=== PATIENT | female | born 1985 | race Caucasian/White ===

== ENCOUNTER → 2016-03-20 | Outpatient (CLI) | payer BC ==
[~2016-03-20] MED LIST: ACHYD1T PO; CITA10TA; DCS100C PO; HYDR-3714 PO; IBP800T PO; MTF500T PO; OXYC1TAB12 PO; PNV1TABL9 PO
--- NOTE | 2016-03-20 17:04 | Diagnostic Imaging Report ---
INDICATION: Back pain, left rib pain. FINDINGS: Three views of the left ribs demonstrate the left lung to be clear. There is normal ossification. No fractures are seen. IMPRESSION: Normal left ribs. Dictated by: Dictated on workstation # [id number]
== END ==
LOC: RAD 16:36
PROVIDERS: ATTEND Nurse Practitioner Family
DX: R07.81 Pleurodynia (principal)
CPT/HCPCS: 71100

== ENCOUNTER 2017-04-27 08:55 | Outpatient (CLI) | payer BC, MEDICAID ==
[~2017-04-27] VITALS: Ht 154.9 cm; Wt 101.2 kg
[2017-04-27 09:20] VITALS: BP 137/82
[2017-04-27] MEDS ORDERED: METF500T4 PO (09:49)
--- NOTE | 2017-04-29 11:50 | Physician Query-Final Dx ---
LOGAN BOWIE 04/29/17 1150: Clinic Account Progress/Dx Physician Query: Please give diagnosis Date of Service Apr 27, 2017 at 08:55 RACHEL OLIVAS MD 04/29/17 1354: Clinic Account Progress/Dx DIAGNOSIS: Diagnosis false labor AZEBLOGAN Apr 29, 2017 11:50 RACHEL OLIVAS MD Apr 29, 2017 13:54
== END 2017-04-27 10:08 | disposition home or self-care (01) ==
LOC: WSo 08:55 → LDRP 08:56 → WSo 10:08
PROVIDERS: ATTEND Obstetrics & Gynecology
DX: O47.03 False labor before 37 completed weeks of gestation, third trimester (principal); Z3A.36 36 weeks gestation of pregnancy
CPT/HCPCS: 99213

== ENCOUNTER 2017-05-14 10:24 | Inpatient (IN) | payer BC, MEDICAID ==
[~2017-05-14] VITALS: Ht 154.9 cm; Wt 101.8 kg
[2017-05-14] VITALS (18 sets, daily range): BP systolic 123–173; BP diastolic 70–88
[~2017-05-14 10:24] MED LIST changes: +METF500T4 PO
[2017-05-14] MEDS ORDERED: D5 LR IV SOLUTION 1,000 ML IV ONE ×2 (10:31→17:32)
[2017-05-14] MEDS ORDERED: D5 LR IV SOLUTION 1,000 ML IV SCH (11:00)
[2017-05-14 11:04] LABS: BASOPHILS % (AUTO) 0 % (0-10); EOSINOPHILS # (AUTO) 0.1 10^3/uL (0.0-0.3); EOSINOPHILS % (AUTO) 1 % (0-10); HEMATOCRIT 40 % (35-52); HEMOGLOBIN 14.4 G/DL (11.5-16.0); LYMPHOCYTES # (AUTO) 2.1 X 10^3 (1.0-4.0); LYMPHOCYTES % (AUTO) 17 % (12-44); MEAN CORPUSCULAR HEMOGLOBIN 31 PG (25-34); MEAN CORPUSCULAR HGB CONC 36 G/DL (32-36); MEAN CORPUSCULAR VOLUME 85 FL (80-99); MONOCYTES # (AUTO) 0.9 X 10^3 (0.0-1.0); MONOCYTES % (AUTO) 7 % (0-12); NEUTROPHILS # (AUTO) 8.8 X 10^3 (1.8-7.8); NEUTROPHILS % (AUTO) 74 % (42-75); PLATELET COUNT 276 10^3/uL (130-400); RED BLOOD COUNT 4.72 10^6/uL (4.35-5.85); RED CELL DISTRIBUTION WIDTH 14.9 % (10.0-14.5); WHITE BLOOD COUNT 11.9 10^3/uL (4.3-11.0)
[2017-05-14 11:24] LABS: ALANINE AMINOTRANSFERASE 16 U/L (0-55); ALBUMIN 3.3 GM/DL (3.2-4.5); ALKALINE PHOSPHATASE 211 U/L (40-136); BILIRUBIN,TOTAL 0.4 MG/DL (0.1-1.0); BUN/CREATININE RATIO 12; CALCIUM 9.4 MG/DL (8.5-10.1); CARBON DIOXIDE 18 MMOL/L (21-32); CHLORIDE 107 MMOL/L (98-107); CREATININE SERUM 0.68 MG/DL (0.60-1.30); GFR ESTIMATED > 60; GLUCOSE 69 MG/DL (70-105); POTASSIUM 3.8 MMOL/L (3.6-5.0); SODIUM 137 MMOL/L (135-145); TOTAL PROTEIN 6.7 GM/DL (6.4-8.2)
[2017-05-14 12:02] LABS: BAND NEUTROPHILS 0 %; LYMPHOCYTES % (MANUAL) 20 %; MONOCYTES % (MANUAL) 6 %; NEUTROPHILS % (MANUAL) 74 %
[2017-05-14 12:03] LABS: BASOPHILS % (MANUAL) 0 %; EOSINOPHILS % (MANUAL) 0 %; RBC MORPH NORMAL
[2017-05-14 12:31] LABS: URINE CREATININE FOR RATIO 13 MG/DL (30-125); URINE PROTEIN FOR RATIO ONLY < 6 MG/DL (6-12)
[2017-05-14] MEDS ORDERED: MAGNESIUM SULFATE DRIP 500 ML IV ONE (13:07)
[2017-05-14] MEDS ORDERED: NS IV 1000 ML 1,000 ML ONE (13:07)
[2017-05-14] MEDS ORDERED: metroNIDAZOLE 500MG/100ML IVPB 100 ML IV ONE (13:15)
[2017-05-14] MEDS ORDERED: NS IV 1000 ML 1,000 ML IV SCH (13:15)
[2017-05-14] MEDS ORDERED: ceFAZolin 2 GM IV Premixed 50 ML IV ONE (13:15)
[2017-05-14] MEDS: MAGNESIUM SULFATE DRIP 500 ML IV SCH (13:20)
[2017-05-14] MEDS ORDERED: LACTATED RINGERS 1,000 ML IV PRN ×2 (13:27)
[2017-05-14] MEDS ORDERED: CITRIC ACID/SOB CIT (BICITRA) 30 ML UDC PO ONE (13:30)
[2017-05-14] MEDS ORDERED: METOCLOPRAMIDE INJ 10 MG/2 ML (REGLAN) IV ONE (13:30)
[2017-05-14] MEDS ORDERED: CATHETER FLUSH 10 ML SYR IV PRN (13:30)
[2017-05-14] MEDS ORDERED: FAMOTIDINE 20MG/2ML IV (PEPCID) IV ONE (13:30)
--- OUTSIDE RECORDS SUMMARY | 2017-05-14 13:59 | XMS REPORT | Continuity of Care Document ---
Author Author [facility] Organization [facility] Address Unknown Phone Unavailable Allergies Active Description Code Type Severity Reaction Onset Reported/Identified Relationship to Patient Clinical Status Yes No Allergy Information Available [id number] Drug Allergy Unknown N/A 2011 Yes No Known Drug Allergies [id number] Drug Allergy Unknown N/A 06/08/2014 Medications There is no data. Problems Date Dx Coded Attending Type Code Diagnosis Diagnosed By 10/19/2011 Ot 220 10/19/2011 Ot 620.0 02/02/2012 Ot 623.8 02/02/2012 Ot 625.9 11/23/2012 RACHEL OLIVAS MD Ot 648.81 11/23/2012 RACHEL OLIVAS MD Ot 652.51 11/23/2012 RACHEL OLIVAS MD Ot 657.01 11/23/2012 RACHEL OLIVAS MD Ot 661.21 11/23/2012 RACHEL OLIVAS MD Ot V04.81 11/23/2012 RACHEL OLIVAS MD Ot V06.1 11/23/2012 RACHEL OLIVAS MD Ot V27.0 12/18/2013 DIA GASTON Ot 648.93 12/18/2013 DIA GASTON Ot 789.09 12/29/2013 Ot 256.4 12/29/2013 Ot 625.8 12/29/2013 Ot 628.9 12/29/2013 Ot 620.2 12/29/2013 Ot V22.1 06/17/2014 Ot 256.4 06/17/2014 Ot 625.8 06/17/2014 Ot 628.9 06/17/2014 Ot 620.2 06/17/2014 Ot V22.1 06/17/2014 RACHEL OLIVAS MD Ot 285.9 06/17/2014 RACHEL OLIVAS MD Ot 648.23 06/17/2014 BRENDON WARD, RACHEL Coleman Ot 654.23 06/17/2014 BRENDON WARD, RACHEL Coleman Ot V72.63 06/17/2014 BRENDON WARD, RACHEL Coleman Ot V74.8 06/18/2014 BRENDON WARD, RACHEL Coleman Ot 576.8 06/18/2014 BRENDON WARD, RACHEL Coleman Ot 648.81 06/18/2014 BRENDON WARD, RACHEL Coleman Ot 654.21 06/18/2014 BRENDON WARD, RACHEL Coleman Ot 657.01 06/18/2014 BRENDON MD, RACHEL Coleman Ot V27.0 07/10/2014 BRENDON WARD, RACHEL Coleman Ot 285.9 07/10/2014 BRENDON WARD, RACHEL Coleman Ot 648.23 07/10/2014 BRENDON WARD, RACHEL Coleman Ot 654.23 07/10/2014 BRENDON WARD, RACHEL Coleman Ot V72.63 07/10/2014 BRENDON WARD, RACHEL Coleman Ot V74.8 11/25/2014 Ot 256.4 11/25/2014 Ot 625.8 11/25/2014 Ot 628.9 11/25/2014 Ot 620.2 11/25/2014 Ot V22.1 11/25/2014 BRENDON WARD, RACHEL Coleman Ot 285.9 11/25/2014 BRENDON WARD, RACHEL Coleman Ot 648.23 11/25/2014 BRENDON WARD, RACHEL Coleman Ot 654.23 11/25/2014 BRENDON WARD, RACHEL Coleman Ot V72.63 11/25/2014 BRENDON WARD, RACHEL Coleman Ot V74.8 03/21/2015 Ot 256.4 03/21/2015 Ot 625.8 03/21/2015 Ot 628.9 03/21/2015 Ot 620.2 03/21/2015 Ot V22.1 03/21/2015 BRENDON WARD, RACHEL G Ot 285.9 03/21/2015 BRENDON WARD, RACHEL Jared Ot 648.23 03/21/2015 BRENDON WARD, RACHEL Coleman Ot 654.23 03/21/2015 BRENDON WARD, RACHEL Coleman Ot V72.63 03/21/2015 BRENDON WARD, RACHEL Coleman Ot V74.8 03/21/2015 JULITO WARD, GERDA Hair Ot R10.2 03/25/2015 Ot 256.4 03/25/2015 Ot 625.8 03/25/2015 Ot 628.9 03/25/2015 Ot 620.2 03/25/2015 Ot V22.1 03/25/2015 BRENDON WARD, RACHEL Coleman Ot 285.9 03/25/2015 BRENDON WARD, RACHEL Coleman Ot 648.23 03/25/2015 BRENDON WARD, RACHEL Coleman Ot 654.23 03/25/2015 BRENDON WARD, RACHEL Coleman Ot V72.63 03/25/2015 BRENDON WARD, RACHEL Coleman Ot V74.8 03/25/2015 JULITO WARD, GERDA Hair Ot R10.2 03/25/2015 BRENDON WARD, RACHEL Coleman Ot R10.83 05/02/2015 ROSALVA WARD, JONE Lewis Ot N39.0 05/06/2015 ROSALVA WARD, JONE Lewis Ot N39.0 06/07/2015 JULITO WARD, GERDA Hair Ot R10.2 PELVIC AND PERINEAL PAIN 06/08/2015 RACHEL OLIVAS MD Ot R10.84 GENERALIZED ABDOMINAL PAIN 06/08/2015 ROSALVA WARD, JONE Lewis Ot N39.0 URINARY TRACT INFECTION, SITE NOT SPECIF 04/05/2016 KAR BOONE Ot R07.81 PLEURODYNIA 04/27/2017 RACHEL OLIVAS MD Ot O47.03 FALSE LABOR BEFORE 37 COMPLETED WEEKS OF 04/27/2017 RACHEL OLIVAS MD, Ot Z3A.36 36 WEEKS GESTATION OF 04/30/2017 RACHEL OLIVAS MD, Ot O47.03 FALSE LABOR BEFORE 37 COMPLETED WEEKS OF 04/30/2017 RACHEL OLIVAS MD, Ot Z3A.36 36 WEEKS GESTATION OF Procedures There is no data. Results Test Result Range Thyroid Stimulating Hormone - 06/13/16 17:20 TSH 0.66 mIU/mL 0.32-5.00 Urine Culture - 09/28/16 17:00 PRELIM CULTURE RESULTS 50,000-100,000 Mixed Lyric FINAL CULTURE RESULTS 50,000-100,000 Gram Positive and Gram Negative Mixed Lyric [id number] Skin Contaminant [id number] Further Workup done MEDIA PLATED Setup at 18:16 on 09/28/2016 CULTURE SOURCE VOID Encounters ACCT No. Visit Date/Time Discharge Status Pt. Type Provider Facility Loc./Unit Complaint [id number] 04/27/2017 08:55:00 04/27/2017 10:08:00 DIS Outpatient RACHEL OLIVAS MD [facility] WSo BLEEDING [id number] 03/20/2016 16:36:00 03/20/2016 23:59:59 CLS Outpatient KAR BOONE [facility] RAD LT RIB PAIN [id number] 04/29/2015 12:17:00 04/29/2015 23:59:59 CLS Outpatient JONE BLACKWELL MD [facility] RAD [id number] 03/23/2015 09:50:00 03/23/2015 23:59:59 CLS Outpatient RACHEL OLIVAS MD [facility] RAD [id number] 11/25/2014 15:04:00 11/25/2014 23:59:59 CLS Outpatient GERDA VILA MD [facility] RAD [id number] 06/16/2014 06:41:00 06/18/2014 16:30:00 DIS Inpatient RACHEL OLIVAS MD [facility] WS [id number] 06/08/2014 11:46:00 06/08/2014 23:59:59 CLS Outpatient RACHEL OLIVAS MD [facility] PREOP [id number] 12/18/2013 12:17:00 12/18/2013 14:15:00 DIS Emergency DIA GASTON [facility] ER [id number] 11/21/2012 08:15:00 11/23/2012 19:05:00 DIS Inpatient RACHEL OLIVAS MD [facility] [id number] 05/23/2017 12:00:00 PEN Preadmit RACHEL OLIVAS MD [facility] [id number] 04/09/2012 17:34:00 Document Registration [id number] 02/01/2012 23:47:00 Document Registration [id number] 01/11/2012 10:44:00 Document Registration [id number] 10/19/2011 10:42:00 Document Registration [id number] 10/18/2011 12:19:00 Document Registration [id number] 09/28/2016 17:52:00 09/28/2016 23:59:00 DIS Outpatient RACHEL OLIVAS [id number] 06/13/2016 17:20:00 06/13/2016 23:59:00 DIS Outpatient GERDA VILA
[2017-05-14] MEDS ORDERED: METOCLOPRAMIDE INJ 10 MG/2 ML (REGLAN) ONE (15:36)
[2017-05-14] MEDS ORDERED: CITRIC ACID/SOB CIT (BICITRA) 30 ML UDC ONE (15:37)
[2017-05-14] MEDS ORDERED: FAMOTIDINE 20MG/2ML IV (PEPCID) ONE (15:37)
[2017-05-14] MEDS ORDERED: ceFAZolin 2 GM IV Premixed 50 ML ONE (15:37)
[2017-05-14] MEDS ORDERED: fentaNYL INJECTION 100 MCG/2 ML AMP ONE (15:42)
[2017-05-14] MEDS ORDERED: OXYTOCIN/NORMAL SALINE 500 ML IV ONE ×4 (15:49→16:58)
[2017-05-14] MEDS ORDERED: ONDANSETRON 4 MG/2 ML (SDV) Z0FRAN ONE (16:57)
[2017-05-14] MEDS ORDERED: KETOROLAC 30 MG/ML VIAL ONE (16:57)
[2017-05-14] MEDS ORDERED: DEXAMETHASONE 10 MG/ML (DECADRON) 1 ML VIAL ONE (16:57)
[2017-05-14] MEDS ORDERED: PHENYLEPHRINE 100 MCG/ML 10 ML (ANESTHESIA) SYR ONE (16:58)
[2017-05-14] MEDS: KETOROLAC 30 MG/ML VIAL IVP SCH (17:20)
[2017-05-14] MEDS: OXYTOCIN/NORMAL SALINE 500 ML IV SCH ×2 (17:27→23:00)
[2017-05-14] MEDS ORDERED: MAGNESIUM SULFATE DRIP 500 ML IV SCH (17:30)
[2017-05-14] MEDS ORDERED: ONDANSETRON 4 MG/2 ML (SDV) Z0FRAN IVP PRN (17:30)
[2017-05-14] MEDS ORDERED: TETANUS,DIPTH,PERTUSS P/F (BOOSTRIX) 0.5 ML VIAL IM ONE (17:30)
[2017-05-14] MEDS ORDERED: PROMETHAZINE INJ 25 MG/ML (PHENERGAN) AMP IM PRN (17:30)
[2017-05-14] MEDS ORDERED: MEASLES,MUMPS,RUBELLA 1 EA INJ SC ONE (17:30)
[2017-05-14] MEDS ORDERED: MEPERIDINE (DEMEROL) INJ 100 MG/ML IM PRN (17:30)
--- NOTE | 2017-05-14 17:31 | History & Physical ---
History and Physical Date Seen by Provider: May 14, 2017 Time Seen by Provider: 12:10 This patient is a 31-year-old white female who was admitted with complaint of vaginal bleeding. She was basil every 7 minutes on admission was having bloody show but was not dilated. Blood pressure was found to be in the 170 systolic. Her LDH was elevated. She was admitted with a diagnosis of PIH/help syndrome. This patient's history includes previous deliveries decision made to go ahead with repeat . Patient is GBS culture was negative Allergies are none Education her vitamins Past medical history past surgical history obstetric history family history is social histories are per the antepartum record HEENT exam is normal Neck is supple no lymphadenopathy no thyromegaly Abdomen is gravid soft nontender nondistended Extreme show clubbing cyanosis. There is no Homans sign. Pelvic exam is deferred other than the nurse's exam on admission where she noted a large amount of blood monitor showed contractions every 5-7 minutes with a normal heart rate pattern Laboratory Tests Test 05/14/17 10:15 Range/Units White Blood Count 11.9 H 4.3-11.0 10^3/uL Red Blood Count 4.72 4.35-5.85 10^6/uL Hemoglobin 14.4 11.5-16.0 G/DL Hematocrit 40 35-52 % Mean Corpuscular Volume 85 80-99 FL Mean Corpuscular Hemoglobin 31 25-34 PG Mean Corpuscular Hemoglobin Concent 36 32-36 G/DL Red Cell Distribution Width 14.9 H 10.0-14.5 % Platelet Count 276 130-400 10^3/uL Mean Platelet Volume 11.0 H 7.4-10.4 FL Neutrophils (%) (Auto) 74 42-75 % Lymphocytes (%) (Auto) 17 12-44 % Monocytes (%) (Auto) 7 0-12 % Eosinophils (%) (Auto) 1 0-10 % Basophils (%) (Auto) 0 0-10 % Neutrophils # (Auto) 8.8 H 1.8-7.8 X 10^3 Lymphocytes # (Auto) 2.1 1.0-4.0 X 10^3 Monocytes # (Auto) 0.9 0.0-1.0 X 10^3 Eosinophils # (Auto) 0.1 0.0-0.3 10^3/uL Basophils # (Auto) 0.0 0.0-0.1 10^3/uL Neutrophils % (Manual) 74 % Lymphocytes % (Manual) 20 % Monocytes % (Manual) 6 % Eosinophils % (Manual) 0 % Basophils % (Manual) 0 % Band Neutrophils 0 % Blood Morphology Comment NORMAL Urine Protein < 6 L 6-12 MG/DL Urine Creatinine 13 L 30-125 MG/DL Urine Protein/Creatinine Ratio Sodium Level 137 135-145 MMOL/L Potassium Level 3.8 3.6-5.0 MMOL/L Chloride Level 107 98-107 MMOL/L Carbon Dioxide Level 18 L 21-32 MMOL/L Anion Gap 12 5-14 MMOL/L Blood Urea Nitrogen 8 7-18 MG/DL Creatinine 0.68 0.60-1.30 MG/DL Estimat Glomerular Filtration Rate > 60 BUN/Creatinine Ratio 12 Glucose Level 69 L 70-105 MG/DL Calcium Level 9.4 8.5-10.1 MG/DL Total Bilirubin 0.4 0.1-1.0 MG/DL Aspartate Amino Transf (AST/SGOT) 17 5-34 U/L Alanine Aminotransferase (ALT/SGPT) 16 0-55 U/L Alkaline Phosphatase 211 H 40-136 U/L Lactate Dehydrogenase 249 H 125-220 U/L Total Protein 6.7 6.4-8.2 GM/DL Albumin 3.3 3.2-4.5 GM/DL LDH is elevated Assessment and plan late at 36-5/7 weeks' gestation admitted with labor and PIH and developing help syndrome patient has had previous deliveries and plan is for repeat was will the undertaken today 36-5/7 weeks' gestation with vaginal bleeding/ labor/severe PIH Allergies and Home Medications Allergies Coded Allergies: No Known Drug Allergies (Unverified , 06/08/14) Home Medications Metformin HCl 500 Mg Tablet, 500 MG PO BID, (Reported) Pnv Cmb#21/Iron/Folic Acid 1 Each Tablet, 1 EACH PO DAILY, (Reported) Patient Home Medication List Home Medication List Reviewed: Yes Clinical Quality Measures DVT/VTE Risk/Contraindication: Risk Factor Score Per Nursin RFS Level Per Nursing on Admit: 3=High RACHEL OLIVAS MD May 14, 2017 5:31 pm
[2017-05-14] MEDS ORDERED: diphenhydrAMINE 50 MG/ML INJ (BENADRYL) IV PRN (17:45)
[2017-05-14] MEDS ORDERED: METOCLOPRAMIDE INJ 10 MG/2 ML (REGLAN) IV PRN (17:45)
[2017-05-14] MEDS ORDERED: NALOXONE 0.4 MG/ML 1 ML (NARCAN) VIAL IV PRN ×2 (17:45)
[2017-05-14] MEDS ORDERED: ONDANSETRON 4 MG/2 ML (SDV) Z0FRAN IV PRN (17:45)
[2017-05-14] MEDS: DOCUSATE SODIUM 100 MG (COLACE) CAP PO SCH (20:10)
[2017-05-14] MEDS: oxyCODONE/APAP 10/325MG (PERCOCET 10) TABLET PO PRN ×2 (20:27→21:34)
[2017-05-15] VITALS (14 sets, daily range): BP systolic 12–141; BP diastolic 57–90
[2017-05-15] MEDS: KETOROLAC 30 MG/ML VIAL IVP SCH ×3 (00:10→19:56)
[2017-05-15] MEDS: MAGNESIUM SULFATE DRIP 500 ML IV SCH (00:10)
--- NOTE | 2017-05-15 00:45 | OPERATIVE REPORT ---
DATE OF SERVICE: 05/14/2017 PREOPERATIVE DIAGNOSES: A 36 and 5/7 weeks' gestation with labor and severe -induced hypertension/developing HELLP syndrome. POSTOPERATIVE DIAGNOSES: A 36 and 5/7 weeks' gestation with labor and severe -induced hypertension/developing HELLP syndrome with placental abruption. OPERATIVE DESCRIPTION: With the patient in the supine position under satisfactory spinal anesthesia, she was prepped and draped in the usual fashion for abdominal surgery. A Webster catheter had been placed in the urinary bladder when the patient was started on magnesium that was left to dependent drainage. A Pfannenstiel incision was made through the skin with a scalpel at the site of the patient's previous Pfannenstiel incision. The abdomen was entered in the usual manner. Bladder retractor placed into position and clean scalpel used to make a 4 cm hysterotomy incision transversely across the lower uterine segment at the site of the patient's lower uterine window with placenta visible through that membrane. The dissection was through the placenta. Baby was in double footling breech position. Breech extraction was performed promptly without difficulty and atraumatically. The was bulb suctioned on completion of delivery. Umbilical cord doubly clamped and the umbilical cord was cut and the infant passed to the nurse Mcfarlane, the pediatric nurse in attendance for delivery. Cord bloods were obtained. The was a female with Apgars of 8 and 9 at 1 and 5 minutes respectively, weight of 6 pounds 7 ounces. time of 16:59 and a cord blood pH was 7.30. It is noted that the placenta delivered fairly promptly after the baby and there was a large clot in the placental bed consistent with approximately 10% area of the placenta that had abrupted. The uterus was wiped clean, was exteriorized anterior wiped clean with a wet laparotomy sponge. Uterine incision closed with a running lock suture of 2-0 Vicryl. Hemostasis was complete. The uterus was returned to the abdominal cavity. All blood clot and debris removed from the abdominal cavity. With sponge, needle counts correct and hemostasis assured, the anterior parietal peritoneum was closed with running suture of 2-0 Vicryl. Rectus muscles were closed with that suture, rectus fascia was closed with 2-0 Vicryl, subcutaneous tissue with 2-0 Vicryl and the skin was stapled. Sponge and needle counts were correct on completion of delivery and the repair. ESTIMATED BLOOD LOSS: Around 400 mL. The patient tolerated the delivery well and was recovered in the LDR. The baby had been taken stable to the full term nursery under the care of nurse Mcfarlane. Job ID: [id number] DocumentID: [id number] Dictated Date: 05/14/2017 17:36:36 Business Liaison Manager Date: 05/15/2017 00:44:03 Dictated By: RACHEL OLIVAS MD
[2017-05-15 06:53] LABS: BASOPHILS % (AUTO) 0 % (0-10); EOSINOPHILS % (AUTO) 0 % (0-10); HEMATOCRIT 31 % (35-52); HEMOGLOBIN 10.6 G/DL (11.5-16.0); LYMPHOCYTES % (AUTO) 15 % (12-44); MEAN CORPUSCULAR HEMOGLOBIN 30 PG (25-34); MEAN CORPUSCULAR HGB CONC 35 G/DL (32-36); MEAN CORPUSCULAR VOLUME 86 FL (80-99); MEAN PLATELET VOLUME 10.1 FL (7.4-10.4); MONOCYTES % (AUTO) 7 % (0-12); NEUTROPHILS # (AUTO) 10.4 X 10^3 (1.8-7.8); NEUTROPHILS % (AUTO) 77 % (42-75); PLATELET COUNT 236 10^3/uL (130-400); RED BLOOD COUNT 3.54 10^6/uL (4.35-5.85); RED CELL DISTRIBUTION WIDTH 14.7 % (10.0-14.5); WHITE BLOOD COUNT 13.4 10^3/uL (4.3-11.0)
[2017-05-15 07:17] LABS: ALANINE AMINOTRANSFERASE 12 U/L (0-55); ALBUMIN 2.6 GM/DL (3.2-4.5); ALKALINE PHOSPHATASE 143 U/L (40-136); BILIRUBIN,TOTAL 0.2 MG/DL (0.1-1.0); BUN/CREATININE RATIO 13; CALCIUM 6.7 MG/DL (8.5-10.1); CARBON DIOXIDE 22 MMOL/L (21-32); CHLORIDE 111 MMOL/L (98-107); CREATININE SERUM 0.61 MG/DL (0.60-1.30); GFR ESTIMATED > 60; GLUCOSE 136 MG/DL (70-105); POTASSIUM 4.1 MMOL/L (3.6-5.0); SODIUM 136 MMOL/L (135-145); TOTAL PROTEIN 4.8 GM/DL (6.4-8.2)
--- NOTE | 2017-05-15 08:37 | Progress Note-Standard ---
Standard Progress Note Progress Notes/Assess & Plan Date Seen by Provider: May 15, 2017 Time Seen by Provider: 08:36 Progress/Assessment & Plan This patient is without complaint. She is ready DL well and has good pain control. She is still at bed rest with IV magnesium and folic acid. We will continue those measures and observed for stability through the day. Vital Signs Date Time Temp Pulse Resp B/P (MAP) Pulse Ox O2 Delivery O2 Flow Rate FiO2 05/15/17 06:52 85 18 107/57 (74) 97 Room Air 05/15/17 06:00 97.6 80 18 100/64 (76) 97 Room Air 05/15/17 05:00 70 18 120/73 (89) 97 Room Air 05/15/17 04:00 72 18 120/73 (89) 97 Room Air 05/15/17 03:00 98.9 74 18 116/67 (83) 97 Room Air 05/15/17 02:00 83 18 106/63 (77) 95 Room Air 05/15/17 01:00 89 18 138/71 (93) 97 Room Air 05/15/17 00:00 69 18 122/69 (86) 97 Room Air 05/14/17 23:00 98.4 92 18 126/81 (96) 97 Room Air 05/14/17 22:00 94 18 127/70 (89) 97 Room Air 05/14/17 21:00 92 18 135/87 (103) 97 Room Air 05/14/17 20:33 Room Air 05/14/17 20:00 99.0 97 18 135/87 (103) 96 Room Air 05/14/17 16:05 101 18 05/14/17 15:50 99 18 05/14/17 15:35 94 18 05/14/17 15:20 96 18 05/14/17 15:05 71 18 05/14/17 14:50 89 18 05/14/17 14:35 71 18 05/14/17 14:20 81 18 05/14/17 14:00 86 18 05/14/17 13:35 72 20 150/81 (104) Room Air 05/14/17 13:35 72 20 05/14/17 13:10 102 20 135/88 (104) Room Air 05/14/17 13:10 102 20 05/14/17 12:45 79 20 146/83 (104) Room Air 05/14/17 12:00 64 20 173/87 (115) Room Air 05/14/17 09:15 98.5 88 20 151/76 (101) Room Air I & O 05/15/17 07:00 Intake Total 5250 ml Output Total 2800 ml Balance 2450 ml Signs are stable. Patient afebrile. The abdomen is benign. Extreme show clubbing cyanosis. There is no Homans sign. There is some pretibial pitting edema that is normal. Assessment and plan is operative day number 1 status post repeat for severe PIH. Patient is stable we will discontinue her magnesium and her Webster catheter and observe her vitals today. RACHEL OLIVAS MD May 15, 2017 8:37 am
[2017-05-15] MEDS: DOCUSATE SODIUM 100 MG (COLACE) CAP PO SCH ×2 (10:10→21:43)
[2017-05-15] MEDS: oxyCODONE/APAP 10/325MG (PERCOCET 10) TABLET PO PRN ×3 (10:10→22:51)
[2017-05-15] MEDS ORDERED: IBUPROFEN 800 MG (MOTRIN) TAB PO ONE (13:00)
[2017-05-15] MEDS: IBUPROFEN 800 MG (MOTRIN) TAB PO SCH ×2 (13:06→19:17)
--- NOTE | 2017-05-15 14:45 | Anesthesia-Regional Post-Op ---
Regional Patient Condition Mental Status: Alert, Oriented x3 Circulation: Same as Pre-Op Headache: Absent Sensation: Full Recovery Motor Block: Absent Post Op Complications Complications None Follow Up Care/Instructions Patient Instructions None needed. Anesthesia/Patient Condition Patient is doing well, no complaints, stable vital signs, no apparent adverse anesthesia problems. No complications reported per nursing. GILMA COOK CRNA May 15, 2017 14:45
[2017-05-16 01:53] VITALS: BP 130/81
[2017-05-16] MEDS: IBUPROFEN 800 MG (MOTRIN) TAB PO SCH ×3 (01:53→13:30)
[2017-05-16] MEDS: oxyCODONE/APAP 10/325MG (PERCOCET 10) TABLET PO PRN (06:03)
[2017-05-16] MEDS: DOCUSATE SODIUM 100 MG (COLACE) CAP PO SCH (07:51)
[2017-05-16 08:00] VITALS: BP 116/75
[2017-05-16] MEDS ORDERED: TETANUS,DIPTH,PERTUSS P/F (BOOSTRIX) 0.5 ML VIAL IM ONE (08:05)
--- NOTE | 2017-05-16 08:16 | Progress Note-Standard ---
Standard Progress Note Progress Notes/Assess & Plan Date Seen by Provider: May 16, 2017 Time Seen by Provider: 08:14 Progress/Assessment & Plan This patient is without complaint. She is ready DL well and has good pain control. She is still at bed rest with IV magnesium and folic acid. We will continue those measures and observed for stability through the day. Vital Signs Date Time Temp Pulse Resp B/P (MAP) Pulse Ox O2 Delivery O2 Flow Rate FiO2 05/15/17 06:52 85 18 107/57 (74) 97 Room Air 05/15/17 06:00 97.6 80 18 100/64 (76) 97 Room Air 05/15/17 05:00 70 18 120/73 (89) 97 Room Air 05/15/17 04:00 72 18 120/73 (89) 97 Room Air 05/15/17 03:00 98.9 74 18 116/67 (83) 97 Room Air 05/15/17 02:00 83 18 106/63 (77) 95 Room Air 05/15/17 01:00 89 18 138/71 (93) 97 Room Air 05/15/17 00:00 69 18 122/69 (86) 97 Room Air 05/14/17 23:00 98.4 92 18 126/81 (96) 97 Room Air 05/14/17 22:00 94 18 127/70 (89) 97 Room Air 05/14/17 21:00 92 18 135/87 (103) 97 Room Air 05/14/17 20:33 Room Air 05/14/17 20:00 99.0 97 18 135/87 (103) 96 Room Air 05/14/17 16:05 101 18 05/14/17 15:50 99 18 05/14/17 15:35 94 18 05/14/17 15:20 96 18 05/14/17 15:05 71 18 05/14/17 14:50 89 18 05/14/17 14:35 71 18 05/14/17 14:20 81 18 05/14/17 14:00 86 18 05/14/17 13:35 72 20 150/81 (104) Room Air 05/14/17 13:35 72 20 05/14/17 13:10 102 20 135/88 (104) Room Air 05/14/17 13:10 102 20 05/14/17 12:45 79 20 146/83 (104) Room Air 05/14/17 12:00 64 20 173/87 (115) Room Air 05/14/17 09:15 98.5 88 20 151/76 (101) Room Air I & O 05/15/17 07:00 Intake Total 5250 ml Output Total 2800 ml Balance 2450 ml Signs are stable. Patient afebrile. The abdomen is benign. Extreme show clubbing cyanosis. There is no Homans sign. There is some pretibial pitting edema that is normal. Assessment and plan is operative day number 1 status post repeat for severe PIH. Patient is stable we will discontinue her magnesium and her Webster catheter and observe her vitals today. May 16, 2017 Patient is without complaint. She is ambulating, voiding, tolerating by mouth well, has good pain control. Patient denies chest pain, denies shortness of breath, denies nausea vomiting and denies headache. Vital Signs Date Time Temp Pulse Resp B/P (MAP) Pulse Ox O2 Delivery O2 Flow Rate FiO2 05/16/17 01:53 98.1 79 18 130/81 (97) 97 Room Air 05/15/17 21:43 98.8 80 18 124/88 (100) 98 Room Air 05/15/17 16:00 98.8 84 19 129/88 (102) 97 Room Air 05/15/17 12:00 97.8 84 18 120/76 (91) 97 Room Air 05/15/17 10:00 80 18 141/90 (107) 97 Room Air 05/15/17 09:00 81 18 121/70 (87) 97 Room Air I & O 05/16/17 07:00 Intake Total 4570 ml Output Total 6700 ml Balance -2130 ml Vital signs are stable. Patient is afebrile. Blood pressures have normalized. The abdomen is benign. The surgical incision is clean dry and intact. Extremities show no clubbing cyanosis. There is no Homans sign. Assessment and plan postoperative day number 2 status post repeat at 36+ weeks gestation. Plan is for discharge home with follow-up in clinic Final Diagnosis repeat RACHEL OLIVAS MD May 16, 2017 8:15 am
[2017-05-16] MEDS ORDERED: IBUP-1780 PO (08:17)
[2017-05-16] MEDS ORDERED: OXYC-465 PO (08:17)
[2017-05-16] MEDS ORDERED: DOCU100C37 PO (08:17)
--- NOTE | 2017-05-16 08:18 | Discharge Instructions ---
Discharge Instructions Discharge Medications New, Converted or Re-Newed RX: RX on Chart Patient Instructions Patient Instructions: As directed Return to The Hospital For: As directed Activity & Diet Discharge Diet: No Restrictions Activity as Tolerated: No Orders-Post D/C & Referrals Follow Up Appt: RTC 1 week for incision check. Call to make follow up appt. for patient in 4 weeks. Wound Care: Remove carlos, apply benzoin and steri strips. Activity Per routine post instructions. Please call in RX to patient pharmacy. Diet as tolerated Patient may shower or tub bathe as desired. Continue home meds RACHEL OLIVAS MD May 16, 2017 8:18 am
[2017-05-16 12:15] VITALS: BP 125/76
[2017-05-16] MEDS ORDERED: SIMETHICONE 80 MG (MYLICON) CHEW PO ONE (13:45)
[2017-05-16 16:25] VITALS: BP 125/76
== END 2017-05-16 16:25 | disposition home or self-care (01) | DRG 765 ==
LOC: WSo 10:24 → LDRP 10:25 → WSo 13:00 → LDRP 13:00 → WS 18:20
PROVIDERS: ADMIT Obstetrics & Gynecology; ATTEND Obstetrics & Gynecology
PROC: 10D00Z1 Extraction of Products of Conception, Low, Open Approach (ICD-10-PCS; principal; 2017-05-14 16:00)
DX: O60.14X0 Preterm labor third trimester with preterm delivery third trimester, not applicable or unspecified (principal); O14.13 Severe pre-eclampsia, third trimester; O45.93 Premature separation of placenta, unspecified, third trimester; O32.1XX0 Maternal care for breech presentation, not applicable or unspecified; O34.211 Maternal care for low transverse scar from previous cesarean delivery; O24.415 Gestational diabetes mellitus in pregnancy, controlled by oral hypoglycemic drugs; Z3A.36 36 weeks gestation of pregnancy; Z37.0 Single live birth; Z23 Encounter for immunization; Z79.84 Long term (current) use of oral hypoglycemic drugs
CPT/HCPCS: 36415; 80053; 82570; 83615; 84156; 85007; 85025; 85027; 90715; 94664; 99212

== ENCOUNTER → 2018-10-16 | Outpatient (CLI) | payer BC, MEDICAID ==
[~2018-10-16] MED LIST changes: +DOCU100C37 PO; +IBUP-1780 PO; +METF-397 PO; -METF500T4 PO; +OXYC-465 PO
--- NOTE | 2018-10-16 17:00 | Diagnostic Imaging Report ---
INDICATION: Anatomical survey. TECHNIQUE: Multiple real-time grayscale images were obtained over the gravid uterus. COMPARISON: None FINDINGS: This is a single living intrauterine in a variable transverse presentation. There is a normal volume of amniotic fluid. Placenta is fundal. There is no previa. The anatomical survey is unremarkable. This includes a three-vessel cord and four-chambered heart. Hear rate is 144 beats per minute and regular. Cervical length is 4.4 cm. The estimated weight is 1 lb. 0 oz. Biometrical measurements are as follows: Biparietal 5.06 cm, age 21 weeks 3 days. Head circumference 19.13 cm, age 21 weeks 3 days. Abdominal circumference 17.52 cm, age 22 weeks 4 days. Femur length 3.47 cm, age 21 weeks 0 days. Sonographic estimate age: 21 weeks 5 days. Sonographic estimated date of delivery: 02/21/2019. Estimated Weight: 445 gm (+/- 65 gm). LMP percentile: 82%. heart rate: 144 beats per minute. number: 1 of 1. IMPRESSION: Single living intrauterine with sonographically estimated gestational age of 21 weeks 5 days and estimated date of confinement February 21, 2019. Dictated by: Dictated on workstation # [id number]
== END ==
LOC: RAD 14:13
PROVIDERS: ATTEND Obstetrics & Gynecology
DX: Z34.92 Encounter for supervision of normal pregnancy, unspecified, second trimester (principal); Z3A.21 21 weeks gestation of pregnancy
CPT/HCPCS: 76805

== ENCOUNTER 2019-01-28 10:35 | Outpatient (CLI) | payer BC, MEDICAID ==
[~2019-01-28] VITALS: Ht 157.5 cm; Wt 103.3 kg
--- NOTE | 2019-01-28 10:25 | NUR ---
Arrived to unit with c/o "abd pain, lower back pain, nausea, shortness of breath. Wt obtained and to room 315. gowned and urine sample obtained. To bed and oriented to room, call light and surroundings. bed controls explained. plan of care reviewed with pt.
[2019-01-28 10:54] LABS: BILIRUBIN,URINE NEGATIVE (NEGATIVE); CLARITY,URINE CLEAR; COLOR,URINE YELLOW; GLUCOSE, URINE (UA) NEGATIVE (NEGATIVE); KETONES,URINE NEGATIVE (NEGATIVE); LEUKOCYTE ESTERASE ,URINE NEGATIVE (NEGATIVE); NITRITE,URINE NEGATIVE (NEGATIVE); PROTEIN,URINE NEGATIVE (NEGATIVE)
[2019-01-28 11:00] VITALS: BP 126/65
[2019-01-28 11:00] LABS: BACTERIA,URINE TRACE /HPF
[2019-01-28 11:19] VITALS: BP 138/63
--- NOTE | 2019-01-28 11:28 | NUR ---
OFFICE CALLED, DR. LÓPEZ UNAVAILABLE AT THIS TIME, MESSAGE LEFT WITH LUCIANA TO CALL THIS RN BACK IN RE: OUTPT.
[2019-01-28 11:30] VITALS: BP 138/63
--- NOTE | 2019-01-28 12:10 | NUR ---
DR. LÓPEZ CALLED, NOTIFIED OF PT'S ARRIVAL, C/O, GESTATION, REVIEW OF STRIP, UA WNL. ORDER RECEIVED FOR IV FLUIDS.
[2019-01-28] MEDS ORDERED: D5 LR IV SOLUTION 1,000 ML IV ONE ×2 (12:13→12:15)
--- NOTE | 2019-01-28 12:30 | NUR ---
DR. LÓPEZ TO PT'S BEDSIDE.
--- NOTE | 2019-01-28 13:30 | NUR ---
UPDATED ON PT'S STATUS. NEW ORDERS RECEIVED FOR TYLENOL. WILL BE TO UNIT SHORTLY.
[2019-01-28] MEDS ORDERED: ACETAMINOPHEN 500 MG TAB (TYLENOL) PO PRN (13:45)
--- NOTE | 2019-01-28 14:27 | NUR ---
DISCHARGE PAPERS PROVIDED AND REVIEWED WITH PT, PT VERBALIZES UNDERSTANDING AND DENIES ANY NEEDS OR QUESTIONS AT THIS TIME. PAPER SIGNED.
--- NOTE | 2019-01-28 14:35 | NUR ---
PT DISCHARGED FROM [facility] TO [facility]ERSONAL [facility] VIA AMBULATORY IN STABLE CONDITION ACC BY S/O.
--- NOTE | 2019-01-29 08:03 | Physician Query-Final Dx ---
AYDEN HARRISON 01/29/19 0803: Clinic Account Progress/Dx Physician Query: Please give diagnosis Please include # weeks gestation Date of Service Jan 28, 2019 at 10:35 CLARE LÓPEZ DO 01/29/19 0806: Clinic Account Progress/Dx DIAGNOSIS: Diagnosis 35 week IUP Back pain AYDEN HARRISON Jan 29, 2019 08:03 CLARE LÓPEZ DO Jan 29, 2019 08:06
== END 2019-01-28 14:35 | disposition home or self-care (01) ==
LOC: WSo 10:35 → LDRP 10:46 → WSo 14:35
PROVIDERS: ATTEND Obstetrics & Gynecology
DX: O26.893 Other specified pregnancy related conditions, third trimester (principal); M54.9 Dorsalgia, unspecified; Z3A.35 35 weeks gestation of pregnancy
CPT/HCPCS: 81000; 82962; 96360; 99213

== ENCOUNTER 2019-02-13 05:30 | Outpatient (CLI) | payer BC, MEDICAID ==
[~2019-02-13] VITALS: Ht 154.9 cm; Wt 104.5 kg
[2019-02-13] MEDS ORDERED: PNV1TABL94 PO (13:49)
== END 2019-02-13 13:50 | disposition home or self-care (01) ==
LOC: PREOP 05:30
PROVIDERS: ATTEND Obstetrics & Gynecology
DX: Z01.818 Encounter for other preprocedural examination (principal)

== ENCOUNTER 2019-02-19 03:39 | Inpatient (IN) | payer BC, MEDICAID ==
[2019-02-19] VITALS (11 sets, daily range): BP systolic 81–135; BP diastolic 57–101
[~2019-02-19] VITALS: Ht 154.9 cm; Wt 105.5 kg
[~2019-02-19 03:39] MED LIST changes: +PNV1TABL94 PO
[2019-02-19] MEDS ORDERED: CITRIC ACID/SOB CIT (BICITRA) 30 ML UDC ONE (05:43)
[2019-02-19] MEDS ORDERED: METOCLOPRAMIDE INJ 10 MG/2 ML (REGLAN) ONE (05:43)
[2019-02-19] MEDS ORDERED: ceFAZolin 2 GM/50 ML NS 50 ML ONE (05:44)
[2019-02-19] MEDS ORDERED: FAMOTIDINE 20MG/2ML IV (PEPCID) ONE (05:44)
--- NOTE | 2019-02-19 06:05 | NUR ---
MARIAELENA BOGGS presented to unit via AMBULATORY from ED, accompanied by S/O, with c/o PREVIOUS. MARIAELENA BOGGS weighed, gowned, voided, and to bed. EFHM and TOCO applied, VS taken. MARIAELENA BOGGS oriented to bed controls, call light, TV, heat, and A/C controls. ARCHIE ESTES CARRIED OUT ABOVE TASKS AND ASSESSMENTS TO FOLLOW PER ARCHIE ESTES.
[2019-02-19] MEDS ORDERED: LACTATED RINGERS 1,000 ML IV SCH (06:34)
[2019-02-19 06:38] LABS: BASOPHILS % (AUTO) 0 % (0-10); EOSINOPHILS # (AUTO) 0.1 10^3/uL (0.0-0.3); EOSINOPHILS % (AUTO) 1 % (0-10); HEMATOCRIT 39 % (35-52); HEMOGLOBIN 13.5 G/DL (11.5-16.0); LYMPHOCYTES # (AUTO) 2.4 X 10^3 (1.0-4.0); LYMPHOCYTES % (AUTO) 21 % (12-44); MEAN CORPUSCULAR HEMOGLOBIN 30 PG (25-34); MEAN CORPUSCULAR HGB CONC 35 G/DL (32-36); MEAN CORPUSCULAR VOLUME 86 FL (80-99); MEAN PLATELET VOLUME 10.3 FL (7.4-10.4); MONOCYTES # (AUTO) 0.8 X 10^3 (0.0-1.0); MONOCYTES % (AUTO) 7 % (0-12); NEUTROPHILS # (AUTO) 8.3 X 10^3 (1.8-7.8); NEUTROPHILS % (AUTO) 71 % (42-75); PLATELET COUNT 339 10^3/uL (130-400); RED CELL DISTRIBUTION WIDTH 14.6 % (10.0-14.5); WHITE BLOOD COUNT 11.6 10^3/uL (4.3-11.0)
[2019-02-19] MEDS: LACTATED RINGERS 1,000 ML IV SCH ×2 (06:39→06:57)
[2019-02-19] MEDS ORDERED: CITRIC ACID/SOB CIT (BICITRA) 30 ML UDC PO ONE (06:45)
[2019-02-19] MEDS ORDERED: FAMOTIDINE 20MG/2ML IV (PEPCID) IV ONE (06:45)
[2019-02-19] MEDS ORDERED: METOCLOPRAMIDE INJ 10 MG/2 ML (REGLAN) IV ONE (06:45)
[2019-02-19] MEDS ORDERED: ceFAZolin 2 GM/50 ML NS 50 ML IV ONE (06:45)
[2019-02-19] MEDS ORDERED: OXYTOCIN/NORMAL SALINE 1,000 ML IV ONE (06:59)
[2019-02-19] MEDS ORDERED: KETOROLAC 30 MG/ML VIAL ONE (07:03)
[2019-02-19] MEDS ORDERED: fentaNYL INJECTION 100 MCG/2 ML AMP ONE (07:03)
[2019-02-19] MEDS ORDERED: ONDANSETRON 4 MG/2 ML (SDV) Z0FRAN ONE (07:03)
[2019-02-19] MEDS ORDERED: HYDROmorphone 2 MG/ML VIAL (DILAUDID) IV ONE (07:15)
[2019-02-19] MEDS ORDERED: ONDANSETRON 4 MG/2 ML (SDV) Z0FRAN IVP PRN ×2 (07:15→07:30)
--- NOTE | 2019-02-19 07:19 | History & Physical-OB ---
OB - Chief Complaint & HPI Date/Time Date of Admission: Date of Admission: Feb 19, 2019 at 06:00 Date seen by a Provider: Feb 19, 2019 Time Seen by a Provider: 07:05 Chief Complaint/History OB-Reason for Admission/Chief: Section Hx : 4 Hx Para: 3 Expected Date of Delivery: Feb 26, 2019 Gestational Age in Weeks: 39 Gestational Age in Days: 0 Indication for : desires repeat Admission Nurse Assessment Rev: No History of Labs O pos Antibody neg RI RPR NR HBsAg NR HIV NR GC neg GBS neg Allergies and Home Medications Allergies Coded Allergies: No Known Drug Allergies (Unverified , 06/08/14) Home Medications Pnv No.121/Iron/Folic Acid 1 Each Tablet, 1 EACH PO DAILY, (Reported) Patient Home Medication List Home Medication List Reviewed: Yes OB - History Hx of Present Care: Yes Ultrasounds: Normal mid trimester US Obstetrical Complications: Gestational Diabetes Medical Complications: None Obstetrical History Hx Termination: No Hx Multiple Gestation: No (second child is adopted) Hx Stillbirth: No Hx Complication: No Hx Induced Hypertens: No Hx Maternal Gestational Diabet: Yes Delivery History Hx Dystocia: No Hx Large For Gestational Age I: Yes Hx Small for Gestational Age I: No Hx Section: Yes Hx Vaginal Delivery Post C-Sec: No Hx Blood Disorders: No Adverse Rxn to Tranfusion: No Patient Past Medical History elevated BMI- obesity Social History/Family History HIV/AIDS: No Recent Infectious Disease Expo: No Sexually Transmitted Disease: No Alcohol Use: Denies Use Recreational Drug Use: No Immunizations Hepatitis A: No Hepatitis B: No Tetanus Booster (TDap): Unknown Date of Influenza Vaccine: Jan 07, 2019 OB - Admission Exam Physical Exam HEENT: NCAT Heart: Rhythm Normal Lungs: Clear Abdomen: Gravid Extremities: Normal Reflexes: Normal Heart Rate: 130's Accelerations: Accelerations Present Decelerations: No Decelerations Short Term Variability: Present Golf Course Patroller Variability: Average (6-25) Contractions on Admission: >10 Minutes Apart Labs Laboratory Tests Test 02/19/19 06:25 Range/Units White Blood Count 11.6 H 4.3-11.0 10^3/uL Red Blood Count 4.52 4.35-5.85 10^6/uL Hemoglobin 13.5 11.5-16.0 G/DL Hematocrit 39 35-52 % Mean Corpuscular Volume 86 80-99 FL Mean Corpuscular Hemoglobin 30 25-34 PG Mean Corpuscular Hemoglobin Concent 35 32-36 G/DL Red Cell Distribution Width 14.6 H 10.0-14.5 % Platelet Count 339 130-400 10^3/uL Mean Platelet Volume 10.3 7.4-10.4 FL Neutrophils (%) (Auto) 71 42-75 % Lymphocytes (%) (Auto) 21 12-44 % Monocytes (%) (Auto) 7 0-12 % Eosinophils (%) (Auto) 1 0-10 % Basophils (%) (Auto) 0 0-10 % Neutrophils # (Auto) 8.3 H 1.8-7.8 X 10^3 Lymphocytes # (Auto) 2.4 1.0-4.0 X 10^3 Monocytes # (Auto) 0.8 0.0-1.0 X 10^3 Eosinophils # (Auto) 0.1 0.0-0.3 10^3/uL Basophils # (Auto) 0.0 0.0-0.1 10^3/uL OB - Assessment/Plan/Diagnosis Assessment Assessment: section Admission Dx 33 yo @ 39 weeks Previous cesareans GDMA1 BMI 44 Admission Status: Inpatient Order (span 2 midnights) Reason for Inpatient Admission: 33 yo @ 39 weeks Previous cesareans GDMA1 BMI 44 Plan Plan: Section CLARE LÓPEZ DO Feb 19, 2019 07:19
[2019-02-19] MEDS ORDERED: OXYTOCIN/NORMAL SALINE 500 ML IV SCH (07:24)
[2019-02-19] MEDS ORDERED: TETANUS,DIPTH,PERTUSS P/F (BOOSTRIX) 0.5 ML VIAL IM SCH (07:30)
[2019-02-19] MEDS ORDERED: MEASLES,MUMPS,RUBELLA 1 EA INJ SC SCH (07:30)
--- NOTE | 2019-02-19 07:30 | Discharge Inst-Women's Service ---
Discharge Inst-Women's Serv Depart Medication/Instructions New, Converted or Re-Newed RX: RX on Chart Problems Reviewed?: Yes Consults/Follow Up Additional Follow Up: Yes Orders/Referrals Dr. Coronel in 7-10 days and in 6 weeks Activity Activity: Activity as Tolerated Driving Instructions: No Driving for 1 Week NO SMOKING: NO SMOKING Nothing Inside Vagina: No Douching, No [place], No Tampons Diet Discharge Diet: No Restrictions Symptoms to Report to : Bleeding Excessive, Pain Increased, Fever Over 101 Degrees F, Vaginal Bleeding Increase, Questions/Concerns For Any Problems or Questions: Contact Your Physician Skin/Wound Care Infection Signs and Symptoms: Increased Redness, Foul Odor of Wound, Increased Drainage, Skin Itchy or Has a Rash, Increased Swelling, Temperature Above 101 F Operative Area Clean and Dry: Keep Incision Clean/Dry Stitches/Kinza/Dermabond: Dermabond, Care of Stitches Bathing Instructions: CLARE Banks DO Feb 19, 2019 07:30
[2019-02-19] MEDS ORDERED: PHENYLEPHRINE 100 MCG/ML 10 ML (ANESTHESIA) SYR ONE (07:31)
[2019-02-19] MEDS ORDERED: ACHD5005 PO (07:32)
[2019-02-19] MEDS ORDERED: DOCU100C37 PO (07:32)
[2019-02-19] MEDS ORDERED: IBUP-844 PO (07:32)
[2019-02-19] MEDS ORDERED: BUPIVACAINE 0.5% 30 ML (SENSORCAINE) VIAL ONE (08:04)
[2019-02-19] MEDS: KETOROLAC 30 MG/ML VIAL IV SCH ×3 (08:20→18:37)
[2019-02-19] MEDS ORDERED: SUFENTA 0.6MCG/ML BUPIVA 0.125 100 ML ONE (08:55)
--- NOTE | 2019-02-19 09:45 | NUR ---
pt transferred to room 307 via bed with this RN and FRANKLYN Gonzalez @ side. report received from FRANKLYN Gonzalez & care assumed.
--- NOTE | 2019-02-19 10:00 | NUR ---
initial shift assessment completed, see interventions for further. FFU/1. lt rubra noted. v-pad in place. SCD's applied. denies c/o's @ time.
--- NOTE | 2019-02-19 11:06 | NUR ---
into nursery via bed to see .
--- NOTE | 2019-02-19 12:09 | NUR ---
returned to room per request.
[2019-02-19] MEDS: HYDROcodone/APAP 5 MG/325 MG (LORTAB) TAB PO PRN ×2 (12:11→18:37)
[2019-02-19] MEDS: CATHETER FLUSH 10 ML SYR IV SCH ×2 (13:21→18:38)
--- NOTE | 2019-02-19 13:51 | OPERATIVE REPORT ---
DATE OF SERVICE: PREOPERATIVE DIAGNOSES: 1. A 33-year-old female at 39 weeks gestation. 2. Gestational diabetes, diet controlled. 3. Morbid obesity. POSTOPERATIVE DIAGNOSES: 1. A 33-year-old female at 39 weeks gestation. 2. Gestational diabetes, diet controlled. 3. Morbid obesity. PROCEDURE: Repeat low transverse section. SURGEON: Micheal Coronel DO ELECTRONIC TRANSACTION IMPLEMENTER: Norma Rosas DNP was necessary for vital retraction and manipulation throughout the procedure. ANESTHESIA: Spinal. ESTIMATED BLOOD LOSS: 500 mL. URINE OUTPUT: 200 mL clear at the end of the procedure. FLUIDS: 1000 mL lactated Ringer's solution. FINDINGS: A live male infant, weight and Apgars were pending. Grossly normal appearing uterus, bilateral fallopian tubes and ovaries with dense scarring of the subcutaneous adipose tissue. SPECIMEN SENT: Placenta. INDICATIONS FOR PROCEDURE: This 33-year-old female was a patient who was scheduled for repeat . Risk, alternatives were all discussed with the patient in detail. Throughout her course, we discussed the possible complication of gestational diabetes; however, is fairly well diet-controlled throughout her . She made it to 39 weeks where we scheduled this elective . After all of her questions were answered, consent was obtained in the preoperative area and the patient was taken to the operating room. OPERATIVE REPORT IN DETAIL: Once in the operating room, spinal analgesia was found to be adequate. She was placed in supine position with leftward tilt, prepped and draped in normal sterile fashion. A timeout was performed. Anesthesia was tested. A Pfannenstiel skin incision was then made through the previously existing scar using knife and carried down to underlying fascia using Bovie cautery. Fascial incision extended laterally using Bovie cautery. Superior aspect of fascial incision was then grasped with Nelson clamps, tented up and dissected off the underlying rectus muscle. Inferior aspect of the fascial incision was then grasped with Nelson clamps, tented up and dissected off the underlying rectus muscles. The rectus muscle was then dissected down the midline using Kraus scissors, which exposed the peritoneum, which I entered bluntly and extended using blunt traction. Saji ring retractor was placed in the peritoneal incision, which offers excellent lateral sidewall retraction. I identified the lower uterine segment, which was found to be thinned out and make a low transverse incision to the vesicouterine peritoneum and bluntly dissected this off the lower uterine segment. I then proceeded with myotomy laterally and superiorly using bandage scissors. Amniotomy was then performed using Allis clamp. Clear fluid was noted. The infant's head was found in the vertex presentation; however, due to the patient's body habitus, it is difficult to apply pressure to the uterine fundus. There was some difficulty delivering the head through the incision due to dense scar tissue and the patient's body habitus. I did place a Kiwi vacuum extractor down the flexion point of the mid sagittal suture and applied 550 mmHg to the Kiwi vacuum extractor and with gentle extension I am able to deliver the head through the incision where the nares and oropharynx were bulb suctioned. Anterior and posterior shoulders were delivered. Infant was then brought to the operative field where the cord was doubly clamped and cut and was handed off to waiting nurses in attendance. Cord blood was collected. Three-vessel cord with intact placenta was delivered spontaneously. Thereafter, IV Pitocin was initiated to facilitate uterine contraction. Uterine fundus became firmer with bimanual massage. Uterus was then exteriorized and cleared of all endometrial clots and debris. I then proceeded with closing the uterine incision using 0 Vicryl suture in locking fashion. A second layer of imbricating 0 monocryl was placed. Excellent hemostasis was noted after doing this. I then placed the uterus back in the pelvis and copiously irrigated the pelvis using normal saline. There was no active bleeding noted from any of my dissection planes. I placed Interceed antiadhesive over my low transverse incision and proceeded with closing the peritoneum using 3-0 Vicryl suture in a running fashion after I removed the Saji ring retractor. I then reapproximated the rectus muscles using 3-0 Vicryl suture in interrupted fashion. The fascia was reapproximated using 0 Vicryl suture in running fashion. Subcutaneous tissue was reapproximated using 3-0 plain in an interrupted subcutaneous stitch and the skin reapproximated using 4-0 Monocryl running subcuticular. Dermabond was applied to incision, sterile dressing with adhesive white tape. The patient tolerated the procedure well and sent to recovery area in stable condition. Lap and sponge counts were correct at the end of the procedure. Instrument counts correct as well. Two grams of Ancef were given preoperatively for infection prophylaxis. Job ID: [id number] DocumentID: [id number] Dictated Date: 02/19/2019 09:02:38 Senior Treasury Analyst Date: 02/19/2019 13:50:49 Dictated By: DO ANGELICA LUZ
--- NOTE | 2019-02-19 14:25 | NUR ---
assisted up to bathroom. voided 450cc urine without difficulty. sekou-care instructions given. v-pad and panties in place.
--- NOTE | 2019-02-19 14:29 | NUR ---
ambulated to nursery to see . tolerated well.
--- NOTE | 2019-02-19 15:10 | NUR ---
returned to room 307- @ side.
--- NOTE | 2019-02-19 19:14 | NUR ---
Report given to FRANKLYN Mariscal.
[2019-02-20] MEDS: KETOROLAC 30 MG/ML VIAL IV SCH (00:15)
[2019-02-20] MEDS: DOCUSATE SODIUM 100 MG (COLACE) CAP PO SCH ×3 (00:15→21:03)
[2019-02-20 00:55] VITALS: BP 119/62
[2019-02-20] MEDS: HYDROcodone/APAP 5 MG/325 MG (LORTAB) TAB PO PRN ×4 (01:29→21:03)
[2019-02-20] MEDS ORDERED: IBUPROFEN 600 MG (MOTRIN) TAB PO ONE (05:31)
[2019-02-20 05:37] VITALS: BP 129/58
[2019-02-20] MEDS: IBUPROFEN 600 MG (MOTRIN) TAB PO SCH ×4 (05:40→23:54)
[2019-02-20 05:46] LABS: BASOPHILS % (AUTO) 0 % (0-10); EOSINOPHILS # (AUTO) 0.1 10^3/uL (0.0-0.3); EOSINOPHILS % (AUTO) 1 % (0-10); HEMATOCRIT 33 % (35-52); LYMPHOCYTES # (AUTO) 1.8 X 10^3 (1.0-4.0); LYMPHOCYTES % (AUTO) 15 % (12-44); MEAN CORPUSCULAR HEMOGLOBIN 29 PG (25-34); MEAN CORPUSCULAR HGB CONC 34 G/DL (32-36); MEAN CORPUSCULAR VOLUME 87 FL (80-99); MEAN PLATELET VOLUME 9.7 FL (7.4-10.4); MONOCYTES % (AUTO) 8 % (0-12); NEUTROPHILS # (AUTO) 9.1 X 10^3 (1.8-7.8); NEUTROPHILS % (AUTO) 76 % (42-75); PLATELET COUNT 241 10^3/uL (130-400); RED CELL DISTRIBUTION WIDTH 14.6 % (10.0-14.5)
[2019-02-20 08:28] VITALS: BP 108/58
--- NOTE | 2019-02-20 08:28 | NUR ---
AM shift assessment completed and vital signs obtained, see interventions. Plan of care reviewed with patient. Patient verbalizes understanding and questions answered. Shower supplies provided. Scheduled Colace PO given. Lortab 2 PO given for patient's c/o pain. Saline lock DC'd, tip intact.
--- NOTE | 2019-02-20 09:35 | Postpartum Progress Note ---
Note Note Day # 1 Subjective: Patient is without complaints. Ambulating, voiding. Tolerating a regular diet without nausea or vomiting. Normal lochia. Pain is well controlled with oral pain medications. Objective: Physical Exam: General - Alert and oriented, no apparent distress Abdomen - Soft, appropriately tender to palpation, non-distended, fundus firm at umbilicus Extremities - no edema, negative Christiano's bilaterally Incision c/df/i Assessment: POD 1 RLTCS Acute blood loss anemia Plan: Routine care. Encourage breast feeding. Encourage ambulation. Ferrous sulfate supplementation. Plan for discharge tomorrow Vitals - Labs Vital Signs - I&O Vital Signs Date Time Temp Pulse Resp B/P (MAP) Pulse Ox O2 Delivery O2 Flow Rate FiO2 02/20/19 05:37 36.5 62 18 129/58 (81) 97 Room Air 02/20/19 01:29 36.5 02/20/19 00:55 36.5 79 18 119/62 (81) 97 Room Air 02/19/19 20:25 36.5 71 18 125/58 (80) 98 Room Air 02/19/19 15:25 36.0 58 18 133/65 (87) 97 Room Air 02/19/19 10:00 36.7 72 18 135/80 (98) 99 Room Air 02/19/19 09:45 Room Air 02/19/19 09:45 37.1 18 128/87 (101) 99 Room Air 02/19/19 09:40 18 125/82 (96) 99 Room Air 02/19/19 09:37 Room Air I & O 02/20/19 07:00 Intake Total 5400 ml Output Total 3725 ml Balance 1675 ml Labs Laboratory Tests 02/20/19 05:36: White Blood Count 12.0H, Red Blood Count 3.75L, Hemoglobin 11.0L, Hematocrit 33L , Mean Corpuscular Volume 87, Mean Corpuscular Hemoglobin 29, Mean Corpuscular Hemoglobin Concent 34, Red Cell Distribution Width 14.6H, Platelet Count 241, Mean Platelet Volume 9.7, Neutrophils (%) (Auto) 76H, Lymphocytes (%) (Auto) 15, Monocytes (%) (Auto) 8, Eosinophils (%) (Auto) 1, Basophils (%) (Auto) 0, Neutrophils # (Auto) 9.1H, Lymphocytes # (Auto) 1.8, Monocytes # (Auto) 1.0, Eosinophils # (Auto) 0.1, Basophils # (Auto) 0.0 02/20/19 08:51: Glucometer 68L CLARE LÓPEZ DO Feb 20, 2019 09:35
--- NOTE | 2019-02-20 09:45 | NUR ---
Dr. Coronel in to see patient.
--- NOTE | 2019-02-20 09:47 | NUR ---
TDAP administered, see EMAR. VIS provided to patient.
--- NOTE | 2019-02-20 10:24 | Anesthesia-Regional Post-Op ---
Regional Patient Condition Mental Status: Alert, Oriented x3 Circulation: Same as Pre-Op Headache: Absent Sensation: Full Recovery Motor Block: Absent Post Op Complications Complications None Follow Up Care/Instructions Patient Instructions None needed. Anesthesia/Patient Condition Patient is doing well, no complaints, stable vital signs, no apparent adverse anesthesia problems. No complications reported per nursing. JC GARCIA CRNA Feb 20, 2019 10:24
[2019-02-20 21:00] VITALS: BP 102/63
--- NOTE | 2019-02-20 21:00 | NUR ---
Pt resting in bed assessment, assessment completed. pt denies any needs. assessment completed. will continue to monitor.
[2019-02-21 01:00] VITALS: BP 98/53
[2019-02-21] MEDS: HYDROcodone/APAP 5 MG/325 MG (LORTAB) TAB PO PRN ×3 (03:17→18:43)
[2019-02-21 04:55] VITALS: BP 93/61
[2019-02-21] MEDS: IBUPROFEN 600 MG (MOTRIN) TAB PO SCH ×3 (06:37→18:43)
[2019-02-21] MEDS: DOCUSATE SODIUM 100 MG (COLACE) CAP PO SCH (08:33)
[2019-02-21 08:34] VITALS: BP 130/77
--- NOTE | 2019-02-21 11:29 | Postpartum Progress Note ---
Note Note Day # 2 Subjective: Patient is without complaints. Ambulating, voiding. Tolerating a regular diet without nausea or vomiting. Normal lochia. Pain is well controlled with oral pain medications. Objective: Physical Exam: General - Alert and oriented, no apparent distress Abdomen - Soft, appropriately tender to palpation, non-distended, fundus firm at umbilicus Extremities - no edema, negative Christiano's bilaterally Incision- c/d/i Assessment: POD 2 RLTCS Plan: Routine care. Encourage breast feeding. Encourage ambulation. Ferrous sulfate supplementation. Plan for discharge today Vitals - Labs Vital Signs - I&O Vital Signs Date Time Temp Pulse Resp B/P (MAP) Pulse Ox O2 Delivery O2 Flow Rate FiO2 02/21/19 08:34 36.9 59 18 130/77 (94) 96 Room Air 02/21/19 04:55 36.5 69 18 93/61 (72) 96 Room Air 02/21/19 01:00 36.3 57 18 98/53 (68) 96 Room Air 02/20/19 21:00 36.3 74 18 102/63 (76) 96 Room Air I & O 02/21/19 07:00 Intake Total 50 ml Balance 50 ml Labs Microbiology 02/19/19 MRSA Screen - Final, Complete MRSA not isolated CLARE LÓPEZ DO Feb 21, 2019 11:29
--- NOTE | 2019-02-21 13:45 | NUR ---
Prescriptions given for pt s.o. to fill prior to discharge
[2019-02-21 16:30] VITALS: BP 126/80
--- NOTE | 2019-02-21 18:45 | NUR ---
Motrin and Lortab given. Discharge instructions given to pt with copy provided. Pt verbalizes understanding and signs to verify. Denies needs or concerns at this time. Pt has prescriptions already filled. Pt to remain in room 307 as boarder parent.
== END 2019-02-21 18:45 | disposition home or self-care (01) | DRG 787 ==
LOC: LDRP 06:00
PROVIDERS: ADMIT Obstetrics & Gynecology; ATTEND Obstetrics & Gynecology
PROC: 10D00Z1 Extraction of Products of Conception, Low, Open Approach (ICD-10-PCS; principal; 2019-02-19 07:20)
DX: O34.211 Maternal care for low transverse scar from previous cesarean delivery (principal); D62 Acute posthemorrhagic anemia; Z37.0 Single live birth; O99.214 Obesity complicating childbirth; O24.420 Gestational diabetes mellitus in childbirth, diet controlled; Z3A.39 39 weeks gestation of pregnancy; O90.81 Anemia of the puerperium; E66.01 Morbid (severe) obesity due to excess calories; Z23 Encounter for immunization
CPT/HCPCS: 36415; 82962; 85025; 86850; 86900; 86901; 87081; 90715

== ENCOUNTER → 2021-03-09 | Outpatient (CLI) | payer OTHER, MEDICAID ==
[~2021-03-09] MED LIST changes: +ACHD5005 PO; +IBUP-844 PO; -OXYC-465 PO; +OXYC-556 PO
--- NOTE | 2021-03-09 15:56 | Diagnostic Imaging Report ---
INDICATION: Evaluate growth and follow-up cord insertion. TECHNIQUE: Multiple real-time grayscale images were obtained over the gravid uterus. COMPARISON: None. FINDINGS: There is a single live fetus in a cephalic presentation. heart rate was recorded at 132 bpm. Placenta is posterior. Amniotic index is 15.7 cm. Cervical length is 4.3 cm. Cord insertion was difficult to evaluate due to position. Biometrical measurements are as follows: Biparietal 8.76 cm, age 35 weeks 3 days. Head circumference 30.62 cm, age 34 weeks 1 days. Abdominal circumference 27.08 cm, age 31 weeks 2 days. Femur length 6.14 cm, age 32 weeks 0 days. Sonographic estimate age: 33 weeks 2 days. Sonographic estimated date of delivery: 04/25/2021. Estimated Weight: 1884 gm (+/- 275 gm). LMP percentile: 88%. heart rate: 132 beats per minute. number: 1 of 1. IMPRESSION: Single live IUP measuring 33 weeks 2 days gestational age with estimated date of confinement sonographically 04/25/2021. Cord insertion was difficult to visualize due to position. Dictated by: Dictated on workstation # [id number]
== END ==
LOC: RAD 13:00
PROVIDERS: ATTEND Nurse Practitioner Women's Health
DX: Z34.83 Encounter for supervision of other normal pregnancy, third trimester (principal); Z3A.33 33 weeks gestation of pregnancy
CPT/HCPCS: 76805

== ENCOUNTER → 2022-11-19 | Outpatient (CLI) | payer OTHER ==
--- NOTE | 2022-11-19 17:34 | Diagnostic Imaging Report ---
PROCEDURE: Pelvic complete, transabdominal and transvaginal sonogram. Limited pelvic doppler. TECHNIQUE: Multiple real-time grayscale images were obtained of the pelvis in various projections transabdominally and transvaginally. Limited pelvic duplex images were obtained. HISTORY: Abnormal uterine bleeding COMPARISON: None available. FINDINGS: Uterus: The uterus is retroverted and measures 6.7 x 4.8 x 5.6 cm. The myometrium is homogeneous without fibroids. Endometrium: The endometrium is normal in thickness and measures 0.8 cm. There is no fluid within the endometrial cavity. Adnexa: Both ovaries have a normal physiologic appearance. The right ovary measures 2.4 x 1.8 x 3.5 cm and the left ovary measures 2.9 x 2.3 x 3.5 cm. Duplex images reveal normal vascular flow to both ovaries. Other: There is no free fluid within the pelvis. IMPRESSION: 1. Unremarkable pelvic ultrasound. Dictated by: Dictated on workstation # [id number]
== END ==
LOC: RAD 12:09
PROVIDERS: ATTEND Obstetrics & Gynecology
DX: N92.0 Excessive and frequent menstruation with regular cycle (principal)
CPT/HCPCS: 76830; 76856